=== PATIENT | female | born 1950 | race Native Hawaiian/Other Pacific Islander ===

== ENCOUNTER 2021-05-07 13:50 | Outpatient (CLI) | payer OTHER | END 2021-05-07 23:58 | disposition home or self-care (01) | LOC: RAD 13:50 | PROVIDERS: ATTEND Nurse Practitioner | DX: M25.552 Pain in left hip (principal) ==

== ENCOUNTER 2021-06-17 10:34 | Outpatient (CLI) | payer OTHER | END 2021-06-17 23:32 | disposition home or self-care (01) | LOC: MRI 10:34 | PROVIDERS: ATTEND Physician Assistant | DX: M25.552 Pain in left hip (principal) ==

== ENCOUNTER 2021-07-16 09:40 | Outpatient (CLI) | payer OTHER | END 2021-07-16 20:10 | disposition home or self-care (01) | LOC: RAD 09:40 | PROVIDERS: ATTEND Nurse Practitioner | DX: Z01.818 Encounter for other preprocedural examination (principal) ==

== ENCOUNTER 2021-09-07 13:00 | Outpatient (CLI) | payer OTHER | END 2021-09-07 20:07 | disposition home or self-care (01) | LOC: RAD 13:00 | PROVIDERS: ATTEND Physician Assistant | DX: M25.552 Pain in left hip (principal) ==

== ENCOUNTER 2021-10-06 14:14 | Outpatient (CLI) | payer OTHER | END 2021-10-06 20:26 | disposition home or self-care (01) | LOC: RAD 14:14 | PROVIDERS: ATTEND Orthopaedic Surgery | DX: M25.552 Pain in left hip (principal) ==

== ENCOUNTER 2022-02-19 08:32 | Outpatient (CLI) | payer OTHER | END 2022-02-19 20:48 | disposition home or self-care (01) | LOC: RAD 08:32 | PROVIDERS: ATTEND Orthopaedic Surgery | DX: M25.552 Pain in left hip (principal) ==

== ENCOUNTER 2023-04-21 08:23 | Outpatient (CLI) | payer OTHER | END 2023-04-21 19:09 | disposition home or self-care (01) | LOC: US 08:23 | PROVIDERS: ATTEND Nurse Practitioner | DX: R42 Dizziness and giddiness (principal) ==